=== PATIENT | female | born 1955 | race Caucasian/White ===

== ENCOUNTER 2016-12-13 15:34 | Emergency (ER) | payer OTHER ==
[~2016-12-13] VITALS: Ht 170.2 cm; Wt 79.1 kg
[~2016-12-13 15:34] MED LIST: ALPRAZOLAM0.5 MG PO; ALTOPREV40 MG PO; BUDEPRION SR150 MG PO; CYCLOBENZAPRINE10 MG PO; PEPCID40 MG PO; PRINIVIL20 MG PO; ULTRAM50 MG PO
[2016-12-13 15:44] VITALS: BP 151/82
[2016-12-13] MEDS ORDERED: BLEPH-105 ML BOTH EYES (16:11)
== END 2016-12-13 16:22 | disposition home or self-care (01) ==
LOC: EME 15:34
PROC: 08C8XZZ Extirpation of Matter from Right Cornea, External Approach (ICD-10-PCS; principal; 2016-12-13)
DX: T15.01XA Foreign body in cornea, right eye, initial encounter (principal); X58.XXXA Exposure to other specified factors, initial encounter; Y93.89 Activity, other specified; Y92.008 Other place in unspecified non-institutional (private) residence as the place of occurrence of the external cause
CPT/HCPCS: 99281; 99283

== ENCOUNTER → 2017-08-14 | Outpatient (CLI) | payer OTHER ==
[~2017-08-14] VITALS: Ht 171.4 cm; Wt 77.1 kg
[~2017-08-14] MED LIST changes: +BLEPH-105 ML BOTH EYES; +BUPROPION HCL150 M2 PO; +FLONASE16 G1 BOTH NARES; +LIPITOR40 MG PO; +LORCET 5-325 M1 EACH PO; +PREMARIN VAGI42.5 GM VG; +PROZAC20 MG PO; +ZESTRIL30 MG PO
== END | disposition home or self-care (01) ==
LOC: AMB 08:30
PROC: 0DBE8ZX Excision of Large Intestine, Via Natural or Artificial Opening Endoscopic, Diagnostic (ICD-10-PCS; principal; 2017-08-14)
DX: K52.832 Lymphocytic colitis (principal); R32 Unspecified urinary incontinence; K57.30 Diverticulosis of large intestine without perforation or abscess without bleeding; I10 Essential (primary) hypertension; K21.9 Gastro-esophageal reflux disease without esophagitis; E78.5 Hyperlipidemia, unspecified; F41.1 Generalized anxiety disorder; Z87.891 Personal history of nicotine dependence
CPT/HCPCS: 88305; 93005; J2250

== ENCOUNTER 2018-05-12 07:16 | Emergency (ER) | payer OTHER ==
[~2018-05-12] VITALS: Ht 170.2 cm; Wt 77.6 kg
[2018-05-12 07:50] LABS: BASOPHIL (%) 0.6 % (0-1); BASOPHIL COUNT 0.1 K/uL (0-0.1); EOSINOPHIL (%) 2.4 % (0-5); EOSINOPHIL COUNT 0.2 K/uL (0-0.3); HEMOGLOBIN 13.7 G/DL (11.9-15.5); IMMATURE GRANULOCYTE (%) 0.3 % (0.0-0.7); LYMPHOCYTE (%) 17.2 % (15-42); LYMPHOCYTE COUNT 1.7 K/uL (1.0-2.8); MCH 30.8 PG (29.0-34.0); MCHC 34.3 G/DL (30.0-36.0); MCV 89.9 FL (83-99); MONOCYTE (%) 8.8 % (3-12); MONOCYTE COUNT 0.9 K/uL (0-0.8); NEUTROPHIL (%) 70.7 % (45-76); NEUTROPHIL COUNT 6.9 K/uL (1.8-6.4); PLATELET COUNT 301 K/uL (156-360); RBC DIS.WIDTH-CV 12.4 % (11.8-14.6); RBC DIS.WIDTH-SD 40.8 % (39-53); RED BLOOD COUNT 4.45 M/uL (3.80-5.20); WHITE BLOOD COUNT 9.7 K/uL (4.1-10.2)
[2018-05-12 08:20] LABS: CHLORIDE 100 MEQ/L (99-109); CREATININE 0.8 MG/DL (0.6-1.3); GFR ESTIMATE (CALCULATED) > 59 mL/min/; GLUCOSE 110 mg/dL (70-99); POTASSIUM 5.1 MEQ/L (3.7-5.4); SODIUM 133 MEQ/L (136-147); UREA NITROGEN (BUN) 13 mg/dL (9-23)
[2018-05-12 09:31] LABS: APPEARANCE CLOUDY ((CLEAR)); BILIRUBIN NEGATIVE; BLOOD SMALL; COLOR YELLOW ((YELLOW)); GLUCOSE (STRIP) NEGATIVE; KETONES NEGATIVE; LEUKOCYTES NEGATIVE; NITRITE NEGATIVE; PROTEIN (STRIP) NEGATIVE; UROBILINOGEN 0.2 MG/DL (0.2-1.0)
[2018-05-12 09:40] LABS: BACTERIA RARE /HPF; EPITHELIAL CELLS NONE SEEN /HPF; MUCUS 1+ /LPF; RED BLOOD CELLS 0-5 /HPF (0-5); WHITE BLOOD CELLS 0-5 /HPF (0-5)
[2018-05-12] MEDS ORDERED: FLAGYL500 MG PO (10:47)
[2018-05-12] MEDS ORDERED: CIPRO500 MG PO (10:47)
[2018-05-12 11:02] VITALS: BP 113/58
== END 2018-05-12 11:03 | disposition home or self-care (01) ==
LOC: EME 07:16
PROVIDERS: Emergency Medicine
DX: K57.32 Diverticulitis of large intestine without perforation or abscess without bleeding (principal); J30.9 Allergic rhinitis, unspecified; Z88.5 Allergy status to narcotic agent
CPT/HCPCS: 74177; 80048; 81003; 85025; 99281; 99284; J1885; J2405; J7030